=== PATIENT | male | born 1985 | race African-American/Black ===

== ENCOUNTER 2021-02-02 02:02 | Emergency (ER) | payer OTHER ==
[~2021-02-02] VITALS: Ht 190.5 cm; Wt 124.7 kg
[2021-02-02] MEDS ORDERED: NAPROSYN500 MG PO (02:56)
[2021-02-02 03:13] VITALS: BP 129/57
== END 2021-02-02 03:14 | disposition home or self-care (01) ==
LOC: ER 02:02
DX: S09.90XA Unspecified injury of head, initial encounter (principal); W22.8XXA Striking against or struck by other objects, initial encounter; Y93.89 Activity, other specified; Y92.89 Other specified places as the place of occurrence of the external cause; Y99.8 Other external cause status